=== PATIENT | male | born 1950 | race Caucasian/White ===

== ENCOUNTER 2016-09-20 18:19 | Inpatient (IN) | payer MEDICARE ==
--- NOTE | ~2016-09-20 | DS ---
Discharge Summary [facility] [address] [place]. [address] NAME: BOBBI PAEZ : 54 STATUS : DIS IN PAT#: [id number] AGE: 65 ADM/REG DATE : 09/20/16 MR#: [id number] REPORT SERV DATE: 10/05/16 DICTATED BY: HOANG BLANCHARD DATE: 10/04/16 REPORT STATUS : Draft TRANSCRIBED BY: PAVITHRA DATE: 10/04/16 Data Collection from hospitalization DISCHARGE DIAGNOSES: 1. Right buttock pressure ulcer and abscess. 2. Malnutrition. 3. Depression. 4. Diabetes mellitus. 5. Hypertension. 6. Esophagitis and duodenal erosion. 7. Debility and generalized weakness. 8. Hyperlipidemia. 9. Benign prostatic hypertrophy. 10.Venous insufficiency. 11.Major depression. 12.History of compression fractures of the lumbar vertebra. 13.Obstructive sleep apnea, on CPAP. 14.Former smoker. CONSULTATIONS: Jayro Olmos M.D. PROCEDURES PERFORMED: Incision and drainage of complex right hip abscess on 09/21/2016. MEDICATIONS: Lipitor 40 mg at bedtime, vitamin B12 1000 mcg per PEG tube every morning, Vibramycin 100 mg twice a day for seven days, Cymbalta as instructed, ferrous sulfate 325 mg with breakfast and supper, Proscar 5 mg every morning, Flonase nasal spray one spray nasally every morning, folic acid 1 mg every morning, Levemir 17 units subcutaneously at bedtime, Keppra 750 mg twice a day, Remeron 15 mg at bedtime, Mycostatin one application topically twice a day, Percocet 7.5/325 one tablet three times a day scheduled, Protonix 40 mg before breakfast, Seroquel 25 mg at bedtime, Flagyl 500 mg every eight hours as instructed, Humalog injection insulin as per sliding scale as instructed, Anusol HC 25 mg per rectum daily as needed, Imodium 2 mg three times a day, FiberCon 1250 mg every morning, Percocet 7.5/325 one tablet every eight hours as needed, Seroquel 12.5 mg at bedtime as needed, vitamin B1 100 mg every morning, Eliquis 5 mg twice a day, multivitamins with minerals one tablet every morning, and Endocet 7.5/325 one tablet every eight hours as needed. CONDITION AT DISCHARGE: Stable. DISPOSITION: The patient was discharged to [facility] on a diabetic diet with activities as instructed. HOSPITAL COURSE: This is a 65-year-old man who has had multiple medical problems. He is a [facility] participant and currently resides at [facility] for rehab and tube feedings. He has a right buttock pressure ulcer, which was being managed at [facility] with wound care. He has had also been following up at [facility] with the same issue. About three to four weeks prior to this admission, it was noted that there was a lot of drainage coming from the area. It was suggested that an MRI be performed. There was only a small opening exteriorly, but the MRI revealed a large abscess underlying the Discharge Summary [address] [address] NAME: BOBBI PAEZ : 54 STATUS : DIS IN PAT#: [id number] AGE: 65 ADM/REG DATE : 09/20/16 MR#: [id number] REPORT SERV DATE: 10/05/16 DICTATED BY: HOANG BLANCHARD DATE: 10/04/16 REPORT STATUS : Draft TRANSCRIBED BY: PAVITHRA DATE: 10/04/16 opening on the right buttock. Treatment options were discussed and it was felt that the patient should undergo incision and drainage and wound VAC placement. He was admitted at this time for further evaluation and treatment. Upon admission, Percocet was started for pain control. Feedings were going to be continued with his oral diet. He was started on doxycycline and Flagyl. A prior culture report had grown out Bacteroides. Blood sugars were fairly well controlled at this time. Cymbalta and Remeron were continued. The patient was seen by Dr. Jayro Olmos regarding the pressure ulcer of the right hip. He has had good healing, but had development of a fluid collection with purulence and it was felt that incision and drainage was indicated. The patient was taken to the operating room where he underwent the above-mentioned procedure. He tolerated this well, and there were no complications. Insulin was continued. On 09/22/2016, the patient was doing better. Wound VAC was placed. He had fair oral intake. He was sleeping well. Flagyl and doxycycline were continued. Discharge planning was performed. He had fair blood sugar control. On 09/23/2016, discharge instructions were given. Due to his improved and stable condition, he was discharged to [facility] with the above-stated instructions. Information collected by: Ayana Santizo I submit the above information as my discharge summary. FREDI/PAVITHRA Hoang Blanchard M.D. / [id number] CC: Rowena Vasquez Jr., M.D. [facility]
--- NOTE | ~2016-09-20 | OP ---
Record Of Operation [facility] [address] [place]. [address] NAME: BOBBI PAEZ : 54 STATUS : ADM IN PAT#: [id number] AGE: 65 ADM/REG DATE : 09/20/16 MR#: [id number] REPORT SERV DATE: 09/21/16 DICTATED BY: SONY MENDES JR. DATE: 09/21/16 REPORT STATUS : Draft TRANSCRIBED BY: PAVITHRA DATE: 09/21/16 DATE OF PROCEDURE: 09/21/2016 PROCEDURE: Incision and drainage of complex right hip abscess. PREOPERATIVE DIAGNOSIS: Right hip abscess and history of pressure ulcer. POSTOPERATIVE DIAGNOSIS: Right hip abscess and history of pressure ulcer. ANESTHESIA: Local. INDICATIONS: The patient had history of pressure ulceration on the right hip. He had, had good healing but had development of fluid collection with purulence and incision and drainage is indicated. FINDINGS: There was a small wound that measured 1 x 1. This was unroofed and the cavity thoroughly explored with sharp and blunt dissection to explore all pockets. It sealed the wound that measured 5 x 1 x 7 cm. It was irrigated thoroughly with saline. Tissue was submitted for cultures, packed with Aquacel Silver gauze with plans for negative pressure wound therapy within 24 hours. He tolerated it well. ESTIMATED BLOOD LOSS: 10 mL. BLANCHE/PAVITHRA Sony Mendes Jr., M.D. / [id number] CC: Ebony Lo M.D.
--- NOTE | ~2016-09-20 | HP ---
History And Physical [place] [id number] [place]. [address] NAME: BOBBI PAEZ : 54 STATUS : DIS IN PAT#: [id number] AGE: 65 ADM/REG DATE : 09/20/16 MR#: [id number] REPORT SERV DATE: 09/23/16 DICTATED BY: HOANG BLANCHARD DATE: 09/23/16 REPORT STATUS : Draft TRANSCRIBED BY: MODL DATE: 09/23/16 DATE OF ADMISSION: 09/20/2016 CHIEF COMPLAINT: Abscess, right buttock. HISTORY OF PRESENT ILLNESS: This is a 65-year-old male with multiple medical problems, who is a [facility] participant, and is [place] residing [place] [facility] [place] and tube feeds. The patient had a right buttock pressure ulcer, which was being managed at [facility] with wound care, and also he had been following up at [facility] for the same. However about three to four weeks ago, it was noticed that there was a lot of discharge coming from the area and up on following up with [facility], it was suggested that an MRI be done for the same. There was only a small opening exteriorly, but the MRI revealed a large abscess underlying the opening on the right buttock. The patient has been admitted for incision and drainage and wound VAC placement for the same. He has been seen by Dr. Olmos for I and D. REVIEW OF SYSTEMS: A 10-point review of systems was performed and was negative except as mentioned above. PAST MEDICAL HISTORY: Includes: 1. Protein calorie malnutrition with unintentional weight loss, presumably due to psychiatry condition. The patient is currently on tube feeding and also taking in food by mouth. 2. Esophagitis and duodenal erosion. The patient is on Protonix for the same. 3. Generalized weakness and debility. 4. Type 2 diabetes mellitus with neuropathy. The patient is on insulin for the same. 5. Hypertension. 6. Hyperlipidemia. 7. Benign prostatic hypertrophy. The patient has had a catheter and a Gonzalez catheter in the past, but is no longer on it currently, and has not had any urinary retention recently. 8. Bilateral DVTs. The patient is on Eliquis at this time for DVT. 9. Venous insufficiency. 10.Pressure ulcer, right buttock as mentioned above. 11.Major depression, on medications and also seen psychiatrist for the same. 12.Compression fracture of lumbar vertebrae. 13.Obstructive sleep apnea, on CPAP. FAMILY HISTORY: Both parents have diabetes. A sister has lupus and one of his brothers has tremors. He has a son with an undefined arrhythmia. SOCIAL HISTORY: The patient is not . He has a son. Has prior history of smoking and he quit in 1978. PAST SURGICAL HISTORY: The patient reports having had left ankle surgery with pins and screws placed. History And Physical [address] [address] NAME: BOBBI PAEZ : 54 STATUS : DIS IN PAT#: [id number] AGE: 65 ADM/REG DATE : 09/20/16 MR#: [id number] REPORT SERV DATE: 09/23/16 DICTATED BY: HOANG BLANCHARD DATE: 09/23/16 REPORT STATUS : Draft TRANSCRIBED BY: PAVITHRA DATE: 09/23/16 ALLERGIES: ALLERGIC TO GLUCOTROL. MEDICATIONS: Please see medication list for details but in brief, he is Anusol p.r.n., Lipitor, Cymbalta, Eliquis, ferrous sulfate, FiberCon, finasteride, Flonase, folic acid, Imodium, Keppra, Levemir, Remeron, NovoLog, Percocet, Protonix, nystatin cream, Seroquel, vitamin B1, and vitamin B12. PHYSICAL EXAMINATION: GENERAL: He is alert, awake, in no acute distress. HEENT: Pupils are round, reactive to light. There is no icterus or pallor noted. NECK: Supple. No JVD. CHEST: No tenderness on palpation. Clear to auscultation bilaterally with normal respiratory effort. CARDIOVASCULAR: Regular rhythm. I did not hear any rubs or gallops. ABDOMEN: Soft. Active bowel sounds are present. EXTREMITIES: No edema noted. There is chronic discoloration of the lower portions of the bilateral lower extremities secondary to venous insufficiency. Right buttock exam reveals he is now status post I and D of the abscess with about approximately 4-5 cm wound after the incision and drainage of the abscess. LABORATORIES: WBCs are 6.9, hemoglobin 9.8, hematocrit 30.7, platelets of 479. Sodium 144, potassium 3.9, chloride 108, creatinine 0.59, BUN 13, glucose 154, calcium 8.5. Chest x-ray was unremarkable. ASSESSMENT AND PLAN: 1. Right buttock pressure ulcer and abscess. He is now status post I and D of the same. A wound VAC will be placed tomorrow in the morning. Pus was sent for culture and sensitivity by Dr. Olmos. I will schedule Percocet for better pain control. Dr. Lo had already started him on doxycycline and Flagyl on the basis of his prior culture report which grew out Bacteroides. 2. Malnutrition. We will continue with tube feeds and his p.o. diet. 3. Depression. Continue Cymbalta and Remeron. 4. Diabetes mellitus. Continue insulin. His blood sugars are fairly well controlled at this time. We will monitor. 5. Hyperlipidemia, on statin. DIEGO/PAVITHRA Hoang Blanchard M.D. / [id number] CC: History And Physical [address] [address] NAME: BOBBI PAEZ : 54 STATUS : DIS IN PAT#: [id number] AGE: 65 ADM/REG DATE : 09/20/16 MR#: [id number] REPORT SERV DATE: 09/23/16 DICTATED BY: HOANG BLANCHARD DATE: 09/23/16 REPORT STATUS : Draft TRANSCRIBED BY: MODL DATE: 09/23/16 Ebony Lo M.D.
[~2016-09-20 18:19] MED LIST: ASAB PO; B1100 PO; B121000P SC; BACDS PO; COREG3 PO; ELIQUIS 5 MG TAB5 MG PO; ENDOCET1 TAB PO; FESO4UDL PO; FIBERCON PO; FLOMAX4 PO; FLONASE NAS; FLORASTOR250 MG PO; FOLIC PO; IMOD PO; KCL20UDL PO; KEPPRA250 PO; LEVEMFLXPN SC; LIPITOR40 PO; LOP25 PO; MIRALAXPKT PO; MYCOSCROI TOP; NOVOPEN SC; OXYCOD PO; PRIN10 PO; PROTONIXIV IV; REG5 PO; SEROQUEL25 PO
[2016-09-20] MEDS ORDERED: VITAMIN B-121000 MC1 PEG (19:15)
[2016-09-20] MEDS ORDERED: KEPPRA750 MG PO (19:16)
[2016-09-20] MEDS ORDERED: SEROQUEL25 PO ×2 (19:16→19:24)
[2016-09-20] MEDS ORDERED: VITAMIN B-1 PO (19:16)
[2016-09-20] MEDS ORDERED: PROTONIX PO (19:17)
[2016-09-20] MEDS ORDERED: HUMALOG SC (19:17)
[2016-09-20] MEDS ORDERED: FOLIC PO (19:17)
[2016-09-20] MEDS ORDERED: FLONASE NAS (19:18)
[2016-09-20] MEDS ORDERED: MULTIVIT/MIN PO (19:19)
[2016-09-20] MEDS ORDERED: ELIQUIS 5 MG TAB5 MG PO (19:19)
[2016-09-20] MEDS ORDERED: FIBERCON PO (19:19)
[2016-09-20] MEDS ORDERED: LIPITOR40 PO (19:19)
[2016-09-20] MEDS ORDERED: PROSCAR5 PO (19:20)
[2016-09-20] MEDS ORDERED: REM15 PO (19:20)
[2016-09-20] MEDS ORDERED: FERROUS SULF325 M1 PO (19:21)
[2016-09-20] MEDS ORDERED: IMOD PO (19:21)
[2016-09-20] MEDS ORDERED: CYMBALTA30 PEG (19:22)
[2016-09-20] MEDS ORDERED: CYMBALTA60 PEG (19:22)
[2016-09-20] MEDS ORDERED: ENDOCET1 TA1 PO (19:23)
[2016-09-20] MEDS ORDERED: LEVEMIR SC (19:23)
[2016-09-20] MEDS ORDERED: NYSTATPOW TOP (19:23)
[2016-09-20] MEDS ORDERED: ANUSOL-HC25 MG PR (19:24)
[2016-09-21 05:15] LABS: INTERNATIONAL NORMAL RATI 1.3 UNITS (-); PROTIME (NOT ORD) 15.7 SEC (12.0-14.5)
[2016-09-21 05:19] LABS: BASOPHILS 0.1 %; BASOPHILS ABSOLUTE 0.01 10/3/uL (0.0-0.16); EOSINOPHILS 4.5 %; EOSINOPHILS ABSOLUTE 0.31 10/3/uL (0.0-0.53); HEMATOCRIT 30.7 % (40.0-51.0); HEMOGLOBIN 9.8 g/dL (13.6-17.8); IMMATURE GRANULOCYTES 0.3 %; IMMATURE GRANULOCYTES ABSOLUTE 0.02 10/3/uL (0.0-0.11); LYMPHOCYTES 26.4 %; LYMPHOCYTES ABSOLUTE 1.83 10/3/uL (0.67-4.30); MEAN CORPUS HGB CONC 31.9 g/dL (32.0-36.0); MEAN PLATELET VOLUME 9.1 fL (9.2-13.0); MONOCYTES 8.5 %; MONOCYTES ABSOLUTE 0.59 10/3/uL (0.21-1.20); NEUTROPHILS 60.2 %; NEUTROPHILS ABSOLUTE 4.17 10/3/uL (2.02-8.40); PLATELET COUNT 479 10/3/uL (150-400); RBC DISTRIBUTION WIDTH 17.6 % (12.0-16.0); RED CELL COUNT 3.75 10/6/uL (4.7-6.1); WHITE BLOOD CELLS 6.9 10/3/uL (4.5-10.5)
[2016-09-21 05:20] LABS: CALCIUM, SERUM 8.5 MG/DL (8.5-10.4); CHLORIDE, SERUM 108 MMOL/L (96-112); CO2 (CARBON DIOXIDE) 28 MMOL/L (24-34); CREATININE 0.59 MG/DL (0.70-1.30); GFR AFRICAN AMERICAN 125 ML/MIN (>=60); GFR NON AFRICAN AMERICAN 108 ML/MIN (>=60); POTASSIUM, SERUM 3.9 MMOL/L (3.5-5.3); SODIUM, SERUM 144 MMOL/L (135-148)
[2016-09-21 05:25] LABS: MANUAL DIFF NO %; MEAN CORPUSCULAR HEMOGLOB 26.1 pg (26.0-34.0); MEAN CORPUSCULAR VOLUME 81.9 fL (80-100)
[2016-09-21 05:27] LABS: BUN (BLOOD UREA NITROGEN) 13 MG/DL (6-23); GLUCOSE, SERUM 154 MG/DL (60-99)
[2016-09-22 05:25] LABS: BASOPHILS 0.3 %; BASOPHILS ABSOLUTE 0.02 10/3/uL (0.0-0.16); EOSINOPHILS 4.2 %; HEMOGLOBIN 8.8 g/dL (13.6-17.8); IMMATURE GRANULOCYTES 0.1 %; IMMATURE GRANULOCYTES ABSOLUTE 0.01 10/3/uL (0.0-0.11); LYMPHOCYTES 26.5 %; LYMPHOCYTES ABSOLUTE 1.89 10/3/uL (0.67-4.30); MEAN CORPUS HGB CONC 32.1 g/dL (32.0-36.0); MEAN CORPUSCULAR HEMOGLOB 26.1 pg (26.0-34.0); MEAN CORPUSCULAR VOLUME 81.3 fL (80-100); MEAN PLATELET VOLUME 8.9 fL (9.2-13.0); MONOCYTES 10.1 %; MONOCYTES ABSOLUTE 0.72 10/3/uL (0.21-1.20); NEUTROPHILS 58.8 %; NEUTROPHILS ABSOLUTE 4.19 10/3/uL (2.02-8.40); PLATELET COUNT 438 10/3/uL (150-400); RBC DISTRIBUTION WIDTH 17.7 % (12.0-16.0); RED CELL COUNT 3.37 10/6/uL (4.7-6.1); WHITE BLOOD CELLS 7.1 10/3/uL (4.5-10.5)
[2016-09-22 05:29] LABS: HEMATOCRIT 27.4 % (40.0-51.0); MANUAL DIFF NO %
[2016-09-22 05:53] LABS: A/G RATIO 0.6 (0.7-1.9); BUN (BLOOD UREA NITROGEN) 16 MG/DL (6-23); CALCIUM, SERUM 8.2 MG/DL (8.5-10.4); CHLORIDE, SERUM 107 MMOL/L (96-112); CO2 (CARBON DIOXIDE) 28 MMOL/L (24-34); CREATININE 0.61 MG/DL (0.70-1.30); GFR AFRICAN AMERICAN 123 ML/MIN (>=60); GFR NON AFRICAN AMERICAN 106 ML/MIN (>=60); GLOBULIN 3.1 G/DL (2.5-4.1); GLUCOSE, SERUM 141 MG/DL (60-99); SGOT(AST) 14 U/L (5-40); SGPT(ALT) 13 U/L (5-65); SODIUM, SERUM 142 MMOL/L (135-148); TOTAL BILIRUBIN 0.2 MG/DL (0-1.2); TOTAL PROTEIN 5.1 G/DL (6.0-8.5)
[2016-09-22 05:55] LABS: ALKALINE PHOSPHATASE 109 U/L (45-117)
== END 2016-09-23 17:02 | DRG 579 ==
LOC: 6NO 18:19
PROVIDERS: Internal Medicine Geriatric Medicine
PROC: 0J990ZZ Drainage of Buttock Subcutaneous Tissue and Fascia, Open Approach (ICD-10-PCS; principal; 2016-09-21)
DX: L02.31 Cutaneous abscess of buttock (principal); L89.313 Pressure ulcer of right buttock, stage 3; E43 Unspecified severe protein-calorie malnutrition; E11.40 Type 2 diabetes mellitus with diabetic neuropathy, unspecified; K26.9 Duodenal ulcer, unspecified as acute or chronic, without hemorrhage or perforation; N40.0 Benign prostatic hyperplasia without lower urinary tract symptoms; I10 Essential (primary) hypertension; I87.2 Venous insufficiency (chronic) (peripheral); K20.9 Esophagitis, unspecified; F32.9 Major depressive disorder, single episode, unspecified; E78.5 Hyperlipidemia, unspecified; G47.33 Obstructive sleep apnea (adult) (pediatric); Z83.3 Family history of diabetes mellitus; Z87.891 Personal history of nicotine dependence; Z79.4 Long term (current) use of insulin; Z86.718 Personal history of other venous thrombosis and embolism
CPT/HCPCS: 71010; 80048; 80053; 82962; 85025; 85610; 85730; 87015; 87070; 87075; 87077; 87102; 87116; 87186; 87205; 93005; A9270-GY